=== PATIENT | female | born 1980 | race Caucasian/White ===

== ENCOUNTER → 2021-10-18 15:04 | Outpatient (BNVA) | payer BC, SELFPAY | PROVIDERS: PCP Nurse Practitioner Family; Visit Provider Nurse Practitioner Family | DX: M54.2 Cervicalgia (principal) ==

== ENCOUNTER → 2022-02-12 08:52 | Outpatient (BNVA) | payer BC, SELFPAY | PROVIDERS: PCP Nurse Practitioner Family; Visit Provider Nurse Practitioner Family | DX: G43.709 Chronic migraine without aura, not intractable, without status migrainosus (principal); M54.2 Cervicalgia; S06.0X0D Concussion without loss of consciousness, subsequent encounter | CPT/HCPCS: 99212 ==

== ENCOUNTER → 2022-03-31 15:32 | Outpatient (BNVA) | payer BC, SELFPAY | PROVIDERS: PCP Nurse Practitioner Family; Visit Provider Nurse Practitioner Family | DX: F07.81 Postconcussional syndrome (principal) | CPT/HCPCS: 99212 ==

== ENCOUNTER → 2022-05-23 14:33 | Outpatient (BNVA) | payer BC, SELFPAY | PROVIDERS: PCP Nurse Practitioner Family; Visit Provider Nurse Practitioner Family | DX: F07.81 Postconcussional syndrome (principal) ==

== ENCOUNTER → 2022-08-13 08:07 | Outpatient (BNVA) | payer BC, SELFPAY | PROVIDERS: PCP Nurse Practitioner Family; Visit Provider Nurse Practitioner Family | DX: Z13.89 Encounter for screening for other disorder (principal) ==

== ENCOUNTER → 2022-09-02 08:07 | Outpatient (BNVA) | payer OTHER, SELFPAY | PROVIDERS: PCP Nurse Practitioner Family; Visit Provider Psychiatry & Neurology Neurology | DX: G24.3 Spasmodic torticollis (principal) | CPT/HCPCS: 64616; J0585 ==

== ENCOUNTER 2023-02-26 08:12 | Outpatient (AMB) | payer BC, SELFPAY ==
--- NOTE | 2023-02-26 08:14 | MHC.OFFVIS ---
Intake Vital Signs 02/26/23 08:15 Height 5 ft 1 in Weight 129 lb 8 oz BMI 24.5 BP 98/72 Blood Pressure Location Lt brachial Position Sitting Pulse 92 Pulse Source Pulse Oximeter Pulse Oximetry (%) 98 Oxygen Delivery Method Room Air Intake Visit Reasons: follow up - LVM Intake Note: Patient presents for follow up. Patient states My migraines are the same my concussion is better but not where I would like it to be. Allergies Erythromycin Allergy (Mild, Uncoded 02/26/23 08:19) Unknown Medication List - Last Reconciled 02/26/23 by ALISHA Davison bupropion HCl 300 mg PO DAILY dihydroergotamine (Trudhesa) 1 spray into each nostril, may repeat x's 1 in 1 hour intranasally PRN; max 2 doses per day or 3 doses per week (do not take with Ritalin or Triptan within 24 hrs of use) 30 days fremanezumab-vfrm (Ajovy) 225 mg (1.5 mL) subcut ONCE 30 days lorazepam 0.5 mg PO BID PRN magnesium oxide 400 mg PO BEDTIME 30 days metoclopramide HCl (Reglan) 5 mg PO Q4H PRN 30 days onabotulinumtoxinA (Botox) 100 units IM ONCE 12 weeks riboflavin (vitamin B2) 400 mg PO DAILY 30 days rizatriptan 5 - 10 mg (0.5 - 1 x 10 mg) PO Q2H PRN 21 days tacrolimus 0.1% topical BID PRN trazodone 50 - 100 mg PO BEDTIME ubrogepant (Ubrelvy) 50 - 100 mg PO at onset of migraine, may repeat in 2 hours PRN; 30 days HPI HPI Comments History of Present Illness Details 43-yr-old female presents for f/u visit. Pt denies any significant interval medical changes. Pt reports the Ajovy is helping the migraine attacks. 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 Since her cognitive difficulties, are more challenging. This makes it difficult to concentrate, multitask. She is struggling with her short-term and working memory- for instance, cannot follow a recipe after returning home form work. During her work day, she has her prep period in the am, but she feels she is generally better in the am then in the afternoon. May request to change her prep period to the afternoon for the 2nd semester. She found some help from, but did not fully tolerate the Methylphenidate IR. [facility] Medical History Arthritis Depression Melanoma Ulcerative colitis Surgical History Hx of adenoidectomy Hx of tonsillectomy Hx of shoulder surgery Hx of section History of partial hysterectomy Hx of neck surgery Family History Other Acute migraine Mental health problem Social History Household Members: Spouse and Children Alcohol intake: current Alcohol intake frequency: a few times a week Patient Tobacco Use Status: Never used Tobacco Review of Systems Const All systems reviewed & are unremarkable except as noted in HPI and below Physical Exam Vital Signs: Last Vital Signs Pulse 92 02/26/23 08:15 BP 98/72 02/26/23 08:15 Pulse Ox 98 02/26/23 08:15 Oxygen Delivery Method Room Air 02/26/23 08:15 BMI result Body Mass Index 24.5 Const General: cooperative and no acute distress Orientation/consciousness: patient oriented x3 HEENT Head: Yes normocephalic Resp Effort & Inspection: normal respiratory effort and able to speak in complete sentences Neuro General: patient oriented x3, gait normal and CN's II-XI intact bilaterally Cognition (Neuro): normal cognition Motor exam (neuro): 5/5 motor strength present throughout Psych Appearance: grossly normal Mental Status: mental status grossly normal Speech and movement: Normal speech and movement present Affect: normal affect Attitude: cooperative Thought process: Normal thought process present Thought content: Normal thought content present Insight: Good insight present (Psych) Judgement: Good judgement present (Psych) Assessment & Plan Assessment & Plan (1) Postconcussional syndrome: Comment: Head Injury August 12 2021 w/ AYALA, dizziness, cognitive difficulties Code(s): F07.81 - Postconcussional syndrome (2) Chronic migraine without aura: Code(s): G43.709 - Chronic migraine without aura, not intractable, without status migrainosus Plan For migraine prevention tx: Continue Magnesium 400 mg, vitamin B2, Avoy- as pt is having good clinical effect. For acute migraine tx: Ubrelvy or rizatriptan at the onset of migraine. Previous tx trials: Ritalin- worsened headaches. Verapamil ER 100mg qhs- ineffective and caused increased dizziness. Methocarbamol 500mg tid prn for cervicalgia- ineffective. Trudhesa- effective- was denied by insurance. Trial Concerta 18mg qam- in hopes this helps after cognitive s/s. Neuro-psych eval to evaluate cognitive difficulties- on wait list. Future considerations- [place] difficulties[place] [facility] [place] F/u in 3 months or sooner prn. Medications: New methylphenidate HCl ER (Concerta) Partial Fill upon patient request. 18 mg PO QAM 30 days 30 tabs 0RF Changed From fremanezumab-vfrm (Ajovy) administer 225mg sc q month 225 mg (1.5 mL) subcut ONCE 30 days 1.5 mL 6RF To fremanezumab-vfrm (Ajovy) administer 675mg sc q 3 months 225 mg (1.5 mL) subcut ONCE 90 days 135 mL 3RF Discontinued erenumab-aooe (Aimovig Autoinjector) Discontinued Reason: Doctor's Order 140 mg subcut ONCE 30 days 30 mL 6RF Coding Level of Care Code Est Pt Level 4 (83824) Diagnoses Postconcussional syndrome F07.81 Chronic migraine without aura G43.709
[2023-02-26 08:15] VITALS: BP 98/72; PULSE 92; O2SAT 98; BMI 24.5
== END 2023-02-26 09:01 | disposition home or self-care (01) ==
PROVIDERS: PCP Nurse Practitioner Family; Visit Provider Nurse Practitioner Family
DX: R41.89 Other symptoms and signs involving cognitive functions and awareness (principal); F07.81 Postconcussional syndrome; G44.309 Post-traumatic headache, unspecified, not intractable
CPT/HCPCS: 99214

== ENCOUNTER → 2023-02-26 08:12 | Outpatient (BNVA) | payer BC, SELFPAY | PROVIDERS: PCP Nurse Practitioner Family; Visit Provider Nurse Practitioner Family ==

== ENCOUNTER → 2023-06-12 15:21 | Outpatient (BNVA) | payer BC, SELFPAY | PROVIDERS: PCP Physician Assistant; Visit Provider Nurse Practitioner Family ==

== ENCOUNTER 2024-03-22 08:21 | Outpatient (AMB) | payer BC, SELFPAY ==
[2024-03-22 08:25] VITALS: BP 98/68; BMI 21.7
--- NOTE | 2024-03-22 08:25 | A.OFFVIS_ITS ---
Vital Signs 03/22/24 08:25 Height 5 ft 1 in Weight 115 lb BMI 21.7 BP 98/68 Blood Pressure Location Rt brachial Position Sitting Intake Visit Reasons: 6 mnts f/u for concussion Intake Note: Patient presents for 6 month follow up. patient's headaches are way better. Allergies Erythromycin Allergy (Mild, Uncoded 03/22/24 08:28) Unknown Medication List - Last Reconciled 03/22/24 by ALISHA Davison bupropion HCl SR 300 mg PO DAILY dihydroergotamine (Trudhesa) 1 spray into each nostril, may repeat x's 1 in 1 hour intranasally PRN; max 2 doses per day or 3 doses per week (do not take with Ritalin or Triptan within 24 hrs of use) 30 days fremanezumab-vfrm (Ajovy) 225 mg (1.5 mL) subcut ONCE 90 days lorazepam 0.5 mg PO BID PRN magnesium oxide 400 mg PO BEDTIME 30 days methylphenidate HCl ER (Concerta) 18 mg PO QAM 30 days metoclopramide HCl (Reglan) 5 mg PO Q4H PRN 30 days onabotulinumtoxinA (Botox) 100 units IM ONCE 12 weeks riboflavin (vitamin B2) 400 mg PO DAILY 30 days rizatriptan 5 - 10 mg (0.5 - 1 x 10 mg) PO Q2H PRN 21 days tacrolimus 0.1% topical BID PRN trazodone 50 - 100 mg PO BEDTIME ubrogepant (Ubrelvy) 50 - 100 mg PO at onset of migraine, may repeat in 2 hours PRN; 30 days HPI Comments Details: 43-yr-old female presents for f/u visit. Pt endorses the following interval medical history changes. She has been actively trying to live healthier. She is taking small dose of weight loss medication. She is exercising regularly- an hour a day. Feels her cognition has returned to her baseline. She denies any cognitive difficulties while at work. 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 States migraine is very well-controlled. She continues on Ajovy 675mg, and feels this is more effective than doing it monthly. Needing to use her acute migraine tx once every 3 months, but more in the sp ring/early summer. Ubrelvy is very effective. Nurtec is also effective- but currently has Ubrelvy. PFSH Medical History Depression Ulcerative colitis Melanoma Arthritis Surgical History Hx of left breast biopsy History of cholecystectomy Hx of adenoidectomy Hx of tonsillectomy Hx of shoulder surgery Hx of section History of partial hysterectomy Hx of neck surgery Family History Other Acute migraine Mental health problem Social History Household Members: Spouse and Children Alcohol intake: current Alcohol intake frequency: a few times a week Patient Tobacco Use Status: Never used Tobacco Physical Exam Vital Signs: Last Vital Signs BP 98/68 03/22/24 08:25 BMI result Body Mass Index 21.7 Const General: cooperative and no acute distress Orientation/consciousness: patient oriented x3 Resp Effort & Inspection: normal respiratory effort and able to speak in complete sen tences Neuro General: patient oriented x3 Cranial nerves: Yes CN's II-XII intact bilaterally Cognition (Neuro): normal cognition Psych Appearance: grossly normal Mental Status: mental status grossly normal Speech and movement: Normal speech and movement present Affect: normal affect Attitude: cooperative Assessment & Plan Assessment & Plan (1) Chronic migraine without aura: Code(s): G43.709 - Chronic migraine without aura, not intractable, without status migra inosus Category: Medical (2) Postconcussional syndrome: Comment: Head Injury August 12 2021 w/ AYALA, dizziness, cognitive difficulties. Resolved. Code(s): F07.81 - Postconcussional syndrome Category: Medical Plan For migraine prevention tx: Continue Magnesium 400 mg, vitamin B2, Avoy 675mg q 90 days- as pt is having good clinical effect. ? For acute migraine tx: Ubrelvy or rizatriptan at the onset of migraine. ? Previous tx trials: Ritalin- worsened headaches. Verapamil ER 100mg qhs- ineffective and caused increased dizziness. Methocarbamol 500mg tid prn for cervicalgia- ineffective. Trudhesa- effective- was denied by insurance. Hookit trail was effective. ? Post-concussive syndrome- Pt reports s/s have resolved and she has returned to her baseline. Has had Neuro-psych eval. 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 Will request psychiatry consult. ? F/u in 6 months or sooner prn. Orders: Referrals Psychiatry Outpatient Consultation Service F32.A - Depression, unspecified Medications: Refilled ubrogepant (Ubrelvy) (0.5 - 1 x 100 mg) 50 - 100 mg PO at onset of migraine, may repeat in 2 hours PRN; 30 days 16 tabs 6RF migraine headache fremanezumab-vfrm (Ajovy) administer 675mg sc q 3 months 225 mg (1.5 mL) subcut ONCE 90 days 4.5 mL 3RF Coding Level of Care Code Est Pt Level 4 (53118) Diagnoses Chronic migraine without aura G43.709 Postconcussional syndrome F07.81
== END 2024-03-22 09:17 | disposition home or self-care (01) ==
LOC: HO.HSMS 08:22
PROVIDERS: PCP Physician Assistant; Visit Provider Nurse Practitioner Family
DX: G43.709 Chronic migraine without aura, not intractable, without status migrainosus (principal); F07.81 Postconcussional syndrome
CPT/HCPCS: 99214

== ENCOUNTER → 2024-03-22 08:21 | Outpatient (BNVA) | payer BC, SELFPAY | PROVIDERS: PCP Physician Assistant; Visit Provider Nurse Practitioner Family ==

== ENCOUNTER → 2024-10-13 15:29 | Outpatient (AMB) | payer BC, SELFPAY ==
[2024-10-13 15:31] VITALS: BP 90/80; PULSE 93; O2SAT 98; BMI 21.3
--- NOTE | 2024-10-13 15:31 | MHC.OFFVIS ---
Vital Signs 10/13/24 15:31 Height 5 ft 1 in Weight 113 lb BMI 21.3 BP 90/80 Blood Pressure Location Rt brachial Position Sitting Pulse 93 Pulse Source Pulse Oximeter Pulse Oximetry (%) 98 Oxygen Delivery Method Room Air Intake Visit Reasons: Follow Up 6mo Intake Note: Patient presents 6 month follow up for migraines. Activities Specialist Required: No Accompanied by: Self / Same As Patient Allergies Erythromycin Allergy (Mild, Uncoded 10/13/24 15:32) Unknown Medication List - Last Reconciled 10/13/24 by ALISHA Davison bupropion HCl SR 200 mg PO DAILY fremanezumab-vfrm (Ajovy) 225 mg (1.5 mL) subcut ONCE 90 days magnesium oxide 400 mg PO BEDTIME 30 days ubrogepant (Ubrelvy) 50 - 100 mg PO at onset of migraine, may repeat in 2 hours PRN; 30 days HPI Comments Details: 44-yr-old female presents for f/u visit of migraine. Pt reports she has been having irregular and very heavy menstrual cycles, thus underwent Mirena IUD insertion proximally 3 weeks ago. Then started a low dose estrogen patch couple of days ago, however she removed it yesterday as she was having mood changes, crying, decreased energy, repeated nocturnal awakenings, hot flashes. She states she did sleep better last night, though did wake up but could easily fall back sleep last night. She also states that she is considering trying Allyi- to help with chronic low libido. She is also having episodes of some of fingers and less so feet turning whitish and takes quite some time to returned to baseline, especially in the cold. She has noticed this while skiing, but also when swimming in the ocean. She states that she believes she had TSH checked in the fall. She has an upcoming follow-up with her [facility], and plans to ask them about doing follow-up lab work. States her mother has Raynaud's, and her daughter is thought to have Raynaud's. She continues to actively trying to live healthier. She is taking small dose of weight loss medication. She is exercising regularly- an hour a day. Feels her cognition has returned to her baseline. She denies any cognitive difficulties while at work. 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 States migraine is very well-controlled. She continues on Ajovy 675mg, and feels this is more effective than doing it monthly. Needing to use her acute migraine tx once every 3 months, but has not needed to use it 4-5 times in the last 1-2 months, which is typical for her in the spring/early summer. Ubrelvy is very effective. Nurtec is also effective- but currently has Ubrelvy. [facility] Medical History (Updated 03/22/24 @ 09:18 by ALISHA Davison) Depression Ulcerative colitis Melanoma Arthritis Surgical History Hx of left breast biopsy History of cholecystectomy Hx of adenoidectomy Hx of tonsillectomy Hx of shoulder surgery Hx of section History of partial hysterectomy Hx of neck surgery Family History Other Acute migraine Mental health problem Social History Household Members: Spouse and Children Alcohol intake: current Alcohol intake frequency: a few times a week Patient Tobacco Use Status: Never used Tobacco Physical Exam Vital Signs: Last Vital Signs Pulse 93 10/13/24 15:31 BP 90/80 10/13/24 15:31 Pulse Ox 98 10/13/24 15:31 Oxygen Delivery Method Room Air 10/13/24 15:31 BMI result Body Mass Index 21.3 Const General: cooperative and no acute distress Orientation/consciousness: patient oriented x3 Resp Effort & Inspection: normal respiratory effort and able to speak in complete sentences Neuro General: patient oriented x3 Cranial nerves: Yes CN's II-XII intact bilaterally Cognition (Neuro): normal cognition Psych Appearance: grossly normal Mental Status: mental status grossly normal Speech and movement: Normal speech and movement present Affect: normal affect Attitude: cooperative Assessment & Plan Assessment & Plan (1) Chronic migraine without aura: Code(s): G43.709 - Chronic migraine without aura, not intractable, without status migrainosus Category: Medical (2) Postconcussional syndrome: Comment: Head Injury August 12 2021 w/ AYALA, dizziness, cognitive difficulties. Resolved. Code(s): F07.81 - Postconcussional syndrome Category: Medical Plan Regarding patient's questions regarding hormonal treatment options: Discussed that migraine with aura in women is associated with a slight increased risk of stroke, and thus if possible I would avoid using supplemental estrogen therapy. Concur with continuing Mirena IUD. She may trial Allyi in hopes this improves libido, however if she does, she would need to reduce her Ubrelvy dose to 50 mg tab, max of 100 mg per day. For hand and feet coldness, suggestive of Raynaud's: Discussed ordering labs to evaluate for secondary underlying etiologies, including CBC, CMP, DONALD/RF, iron studies, nutritional studies. For migraine prevention tx: Continue Magnesium 400 mg, vitamin B2, Avoy 675mg q 90 days- as pt is having good clinical effect. Previous migraine prevention trials: Verapamil ER 100mg qhs- ineffective and caused increased dizziness. Botox not fully effective. Aimovig- effective but exacerbated constipation. For acute migraine tx: Ubrelvy or rizatriptan at the onset of migraine. Previous acute migraine treatment trials: Methocarbamol 500mg tid prn for cervicalgia- ineffective. Trudhesa- effective- was denied by insurance. Nurtec trail was effective. Rizatriptan-lost effectiveness. ? Post-concussive syndrome- Pt reports s/s have resolved and she has returned to her baseline. Has had Neuro-psych eval. 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 Will request psychiatry consult. Previous tx trials: Ritalin- worsened headaches. ? F/u in 6 months or sooner prn. Coding Level of Care Code Est Pt Level 4 (44657) Diagnoses Chronic migraine without aura G43.709 Postconcussional syndrome F07.81
--- OUTSIDE RECORDS SUMMARY | 2024-10-13 15:32 | XMS_ITS | Data Portability ---
Author Organization [employer] [facility] in Office Address [address] [place] [address] Assessment Encounter Date Assessment Date Assessment LastModified by Organization Details LastModified Time 08/25/2024 08/25/2024 I spent 35 minutes of hvbf-[id number]-ppcd counselling and care coordination time with the patient. This includes reviewing medical records (medical, surgical, family and social history); updating medication and allergy information in the electronic health record; and ordering labs, medications, and education materials to continue patient care. [email or web address] Not available 08/25/2024 16:59:06 10/04/2024 10/04/2024 spent 35 minutes of qxwn-kg-xglr counselling and care coordination time with the patient. This includes reviewing medical records (medical, surgical, family and social history); updating medication and allergy information in the electronic health record; and ordering labs, medications, and education materials to continue patient care. [email or web address] Not available 10/04/2024 14:44:58 Plan of Treatment Reminders Order Date Submit Date Provider Last Modified By Organization Details Last Modified Time Details Appointments V3APPT:PP 2024 02:30P Rosa RAHMAN NP Not available Not available Not available V3APPT:PP 2024 05:15A Rosa OLMEDO NP Not available Not available Not available Lab None recorded. Referral None recorded. Procedures None recorded. Surgeries None recorded. Imaging None recorded. Medication Orders estradiol 0.025 mg/24 hr semiweekl y transderm al patch 2024 025 [id number], [address] [place], [address], 10/04/2024 15:15:47 Patient TargetsNo targets recorded. Patient Instructions Encounter Date Encounter Id Patient Instructions Last Modified By Organization Details Last Modified Time 08/25/2024 [id number] Any requested follow-up visits are listed below in the Plan of Care section. Go directly to the [employer] virtual classroom manager at [email or web address] to book a time. [email or web address] Not available 08/25/2024 07:23:10 It was a pleasur e to meet with you today! We discussed your health concerns related to libido, skin, and hair changes, as well as irregular periods and heavy bleeding. Your Care Plan Together, we decided that you would: - Consider starting Addyi, a medication taken every night to increase dopamine levels and sex hormones, which may help with libido. Be aware that Addyi cannot be mixed with alcohol and may cause drowsiness and nausea. It usually takes about 4 weeks to take effect, and if no improvement is seen by 2 months, we can consider other options. - Upload your recent hormone levels, including testosterone, to the patient portal for review. Your testosterone levels were on the lower end of the normal range, and you may benefit from testosterone therapy if Addyi is not effective. - Consider the Mirena IUD, which can help with irregular periods and heavy bleeding. The Mirena contains progesterone, which can prevent uterine cancer and may allow you to use an estrogen patch without needing additional oral progesterone. - If you prefer not to use the Mirena, you can use an estrogen patch with oral progesterone. The patch may cause lightheadedness, nausea, headaches, breast tenderness, and breakthrough bleeding when first started, but these symptoms usually fade. There is no direct correlation with weight gain. - You could discuss with you local CAD DEVELOPER about surgical options such as endometrial ablation and or a partial hysterectomy - If you prefer not to use hormones, there are other medications for libido, such as Vyleesi, an injection given 30-40 minutes before intercourse. However, Vyleesi requires planning and cannot be used more than 8 times a month. - Follow up with me in 4 weeks to discuss your progress and any side effects you may experience. I will send you an email with all the information we discussed today, and you can reach me through the patient portal if you have any questions or concerns. Please carefully review the care plan we have decided upon, specific information regarding your medication, and important details about your treatment detailed below. Thank you for trusting us with your care! Flibanserin (Addyi)- This is a novel non-hormonal, multifunctional serotonin agonist antagonist (MSAA) that acts in the WAITER/WAITRESS to increase dopamine and norepinephrine (both responsible for sexual excitement) while decreasing serotonin (responsible for sexual satiety/inhibition) . It was approved by the FDA in 2015 to treat hypoactive sexual desire disorder in premenopausal women. Studies have shown that it modestly increases sexual functioning. Your risk of severe low blood pressure and fainting (loss of consciousness) is increased if you take ADDYI and: ? ? drink alcohol close in time to when you take your ADDYI dose. o Wait at least 2 hours after drinking 1 or 2 standard alcoholic drinks before taking ADDYI at bedtime. If you drink 3 or more standard alcoholic drinks in the evening, skip your ADDYI dose at bedtime. After you have taken your ADDYI at bedtime, do not drink alcohol until the following day. Do not take or start taking any prescription medicines, irmo-wgy-mpgsbqe medicines, or herbal supplements while taking ADDYI until you have talked with your provider. Do not take ADDYI if you: ? ? take certain medicines. Taking ADDYI with certain other medicines can increase the amount of ADDYI in your blood and cause severe low blood pressure, fainting (loss of consciousness), and sleepiness. Do not take ADDYI if you are taking any of the following medicines: o Certain medicines used to treat HIV-1 infection o Certain medicines that you take by mouth used to treat fungal infections o Certain antibiotics o Certain medicines used to treat Hepatitis C infection o Certain medicines used to treat high blood pressure, chest pain (angina), or other heart problems Take 100mg every night. Common side effects: Dizziness Difficulty falling asleep or staying asleep Nausea Dry mouth Tiredness May take 8 weeks to see benefits. Bremelanotide (Vyleesi): - FDA approved in 2019 to treat hypoactive sexual desire disorder in premenopausal women. It is a peptide agonist of the melanocortin receptors and acts centrally in the brain to reduce inhibition and increase excitation. The drug was found to improve desire and satisfaction compared to placebo. It comes as a push pen injectable device. Dosing: The woman Injects 1.75 mg subcutaneously via the autoinjector to the abdomen or thigh, as needed, at least 45 minutes before anticipated sexual activity. No more than one dose should be used within a 24 hour period and more than 8 doses per month is not recommended. Side effects: headaches, flushing and nausea. -Testosterone is not FDA approved for use in women, but is commonly used to treat low libido in women. Treatment with testosterone in women has been associated with a modest improvement in sexual desire and satisfaction. -???There is little terminal supervisor data on the safety of testosterone in women. Testosterone is not FDA approved for use in women. -???You will be started on a low dose and we will increase your dose in order to give you the best overall benefit, without increasing your overall risk of side effects. -Common side effects that have been reported include, but are not limited to acne, mood changes, excessive hair growth, and weight gain. The doses that are prescribed for women typically will not cause male hormone side effects. Rarely high doses could lead to hair loss, deepening of the voice or enlargement of the clitoris and these changes may not be reversible. -In order to monitor your response to the use of testosterone, we will check your level before starting therapy and we will also monitor your testosterone blood levels frequently. -???Please contact your [facility] clinician with any concerns. If you start to experience any alarming symptoms like chest pain or trouble breathing please go to the nearest emergency room for care. Today we reviewed options for treating common symptoms of menopause. These options include hormonal medications, non hormonal medications, integrative therapies and lifestyle modifications. Menopause symptoms vary from woman to woman. Some women get no symptoms, but others have many. Intensity and duration also vary and can last on average 5-10 years. HRT may help with many menopausal symptoms. It is FDA approved for the treatment of hot flashes, vaginal symptoms, osteoporosis, and for those in early or premature menopause. HRT is associated with relief of symptoms and improvement in bone health. When started close to the age of menopause, HRT reduces cardiovascular risk and has potential benefits for cognitive health. Here are the latest recommendations from the Menopause Society: https://menopause.o rg/patient-educatio n/menopause-topics/ hormone-therapy Hormone therapy most often involves the combination of estrogen and progestogen. As with any drug there are some potential risks associated with hormone therapy. There are concerns of associated health risks with HRT including risks related to breast cancer, uterine cancer, gallbladder disease, and dementia. Many of these concerns are related to older types of hormones that are no longer recommended today and some of these concerns differ depending on the component of hormones (i.e., estrogen vs progestogen) and the mode of delivery. Some studies have suggested that some types of HRT may increase the risk of heart attack, stroke, and blood clots. If you develop chest pain, difficulty breathing, or symptoms suggestive of a stroke please seek care immediately. Today we reviewed your personal history including specific risks and benefits of hormone therapy for you. Based on this shared decision making, we recommend HRT to you as a reasonable and helpful therapy. If you have additional questions related to health risks associated with HRT, please discuss with your clinician. Please know that HRT requires fine-tuning and an individualized approach. We? ll plan to adjust your therapy if needed to address your symptoms. We will meet in 4-6 weeks to check in about your new regimen. Please reach out if you need to meet sooner. Estradiol transdermal patch (Vivelle Dot): -Helpful for hot flashes, night sweats, and symptoms of perimenopause/menop ause. -Twice weekly transdermal patch. -Get it from your pharmacy. Application notes: -Peel off the backing from the patch and apply to a clean, dry area of your body, usually lower abdomen or upper buttock. Press the patch firmly in place for 10 seconds. Do not apply the patch on your breast or on oily, broken, or irritated skin. Replace your patch twice a week, and be as consistent as possible with the days you choose to change it. If the patch is not sticking or it causes irritation, try dusting your skin with a small amount of cornstarch before applying. Side effects: -While the HRT is safe for most users, some may experience side effects, including: nausea, breast tenderness, bloating, spotting, and mild mood changes. Estrogen in some forms increases the risk of a blood clot in the leg (deep vein thrombosis) or lung (pulmonary embolism). While blood clots are rare, contact your health care provider or go to the emergency room if you develop shortness of breath, coughing or chest pain, leg or calf pain, or redness or swelling. Oral micronized progesterone (Prometrium)? Continuous: -We prescribe progesterone to protect women with a uterus while taking estrogen. It may be prescribed for some individuals to help with sleep. -Remember to take this medication orally daily before bed, because it may make you drowsy. That is normal and common, and could bring the added benefit of better sleep. -Get it from your pharmacy. -Contraindications to this formulation: Peanut allergies as in peanut oil. -Concerning symptoms that would require immediate visit with PCP or urgent care: Severe mood changes. -Non-concerning side effects that are likely to resolve: cramping, bloating and mild moodiness. These are likely to ease within three months. [email or web address] Not available 08/25/2024 17:14:59 10/04/2024 [id number] Any requested follow-up visits are listed below in the Plan of Care section. Go directly to the [employer] virtual classroom manager at [email or web address] to book a time. [email or web address] Not available 10/04/2024 14:43:09 It was a pleasur e to meet with you today! We discussed your health concerns related to the recent insertion of the Mirena IUD, cystic acne, heavy and painful periods, and low libido. Your Care Plan Together, we decided that you would: - Give the Mirena IUD 3-6 months to see if your menstrual cycles and cystic acne improve, as it can take this time for your body to adjust. - Start using the estrogen patch at the lowest dose of 0.025 mg. If you experience worsening migraines, remove the patch. - Continue using the estrogen cream (2 mg) twice a week as currently prescribed. - Monitor for potential side effects of the estrogen patch, including irregular spotting and breast tenderness, which usually resolve within 4 to 6 weeks. - Schedule a follow-up appointment with Cynthia Olmedo on November 15 at 8:15 AM to assess the effectiveness of the estrogen patch and discuss any further steps. - Consider trying the Bhanu Libido supplement, which contains baldemar, ashwagandha, and maximo, if you prefer a natural approach to improving libido. You can find this supplement at [employer]. - Hold off on starting any new supplements, such as the Cortisol Certified Emergency Vehicle Technician, until after the follow-up appointment to avoid adding too many variables at once. Please carefully review the care plan we have agreed upon above, which includes specific information about your treatment for heavy periods, cystic acne, and low libido, as well as other important details about your overall care. Thank you for trusting us with your care! Today we reviewed options for treating common symptoms of menopause. These options include hormonal medications, non hormonal medications, integrative therapies and lifestyle modifications. Menopause symptoms vary from woman to woman. Some women get no symptoms, but others have many. Intensity and duration also vary and can last on average 5-10 years. HRT may help with many menopausal symptoms. It is FDA approved for the treatment of hot flashes, vaginal symptoms, osteoporosis, and for those in early or premature menopause. HRT is associated with relief of symptoms and improvement in bone health. When started close to the age of menopause, HRT reduces cardiovascular risk and has potential benefits for cognitive health. Here are the latest recommendations from the Menopause Society: https://menopause.o rg/patient-educatio n/menopause-topics/ hormone-therapy Hormone therapy most often involves the combination of estrogen and progestogen. As with any drug there are some potential risks associated with hormone therapy. There are concerns of associated health risks with HRT including risks related to breast cancer, uterine cancer, gallbladder disease, and dementia. Many of these concerns are related to older types of hormones that are no longer recommended today and some of these concerns differ depending on the component of hormones (i.e., estrogen vs progestogen) and the mode of delivery. Some studies have suggested that some types of HRT may increase the risk of heart attack, stroke, and blood clots. If you develop chest pain, difficulty breathing, or symptoms suggestive of a stroke please seek care immediately. Today we reviewed your personal history including specific risks and benefits of hormone therapy for you. Based on this shared decision making, we recommend HRT to you as a reasonable and helpful therapy. If you have additional questions related to health risks associated with HRT, please discuss with your clinician. Please know that HRT requires fine-tuning and an individualized approach. We? ll plan to adjust your therapy if needed to address your symptoms. We will meet in 4-6 weeks to check in about your new regimen. Please reach out if you need to meet sooner. Estradiol transdermal patch (Vivelle Dot): -Helpful for hot flashes, night sweats, and symptoms of perimenopause/menop ause. -Twice weekly transdermal patch. -Get it from your pharmacy. Application notes: -Peel off the backing from the patch and apply to a clean, dry area of your body, usually lower abdomen or upper buttock. Press the patch firmly in place for 10 seconds. Do not apply the patch on your breast or on oily, broken, or irritated skin. Replace your patch twice a week, and be as consistent as possible with the days you choose to change it. If the patch is not sticking or it causes irritation, try dusting your skin with a small amount of cornstarch before applying. Side effects: -While the HRT is safe for most users, some may experience side effects, including: nausea, breast tenderness, bloating, spotting, and mild mood changes. Estrogen in some forms increases the risk of a blood clot in the leg (deep vein thrombosis) or lung (pulmonary embolism). While blood clots are rare, contact your health care provider or go to the emergency room if you develop shortness of breath, coughing or chest pain, leg or calf pain, or redness or swelling. [email or web address] Not available 10/04/2024 15:17:27 Reason for Referral None Reported. Results Created Date Observation Date Name Description Value Unit Range Abnormal Flag Note LastModifiedBy Organization Detail LastModifiedTime Result Notes None recorded. Problems Name Problem SNOMED Code Status Onset Date Resolution Date Notes Provider Name and Address Organization Details Recorded Time Dysmenorrhe a 982982341 Active 2024 Elidia Peters NP (Katie) [address] [facility] 15:12:20 Sexual desire disorder 64361316 [place] 2024 [place] [address] [facility] 07:23:28 Changes in skin texture 925758599 Active 2024 [place] [address] [address] [facility], [facility] 5 07:23:41 Loss of hair 978544173 Active 2024 [place] [address] [facility] 07:23:46 Abnormal uterine bleeding 3976589757382 0 Active 2024 [place]THIA [place] [address], [address], [facility] 16:58:31 Irregular periods 40842822 Active 2024 [place], [address], [facility] 16:59:15 Gestational diabetes mellitus in childbirth 9237780119334 9101 Active 2024 [place], [address], [facility] 16:59:15 Migraine without aura, not refractory 584505060 Active 2024 [place], [address], [facility] 5 16:59:15 Torsion of the ovary and fallopian tube 033070967 Active 2024 [place], [address], [facility] 16:59:15 Endometrios is (clinical) 902471109 Active 2024 [place], [address], [facility] 5 16:59:15 Uterine leiomyoma 88198890 Active 2024 [place], [address], [facility] 16:59:15 Reduced libido 8387703 Active 2024 [place], [address], [facility] 16:59:16 Abnormal perimenopau yvonne bleeding 810393708 Active 2024 [place], [place], [facility] 16:59:16 Problem Notes None recorded. Procedures Surgical History Date Name Laterality Status Provider Name and Address Organization Details Recorded Time 06/29/19 25 Date of Last Pap [place]ear [place] , [facility] 08/25/2024 16:14:56 12/06/19 24 Date of Last Mammogram completed XIMENA BUNDY [place], , [facility] 08/25/2024 16:14:56 08/06/19 20 Date of Last Colonoscopy completed XIMENA BUNDY [facility] , [facility] 08/25/2024 16:14:56 [facility] 08/25/2024 16:15:00 ligation of fallopian tube completed XIMENA BUNDY [facility] , [facility] 08/25/2024 16:35:52 Cholecystectomy completed XIMENA BUNDY [facility] , [facility] 08/25/2024 16:37:35 Imaging Results None recorded. Procedure Notes None recorded. Medical Equipment None Reported. Allergies Allergen ID Allergen Name Allergen Category Reaction Reaction Severity Criticality Documentation Date Start Date Code Code System Note Provider Name and Address Organization Details Recorded Time 20300727 erythromy armand medicatio n rash Not available low 08/25/20242019 4053 RxNorm Not Available luis - External Data Service - prod 15:49:02 259174 juniper tar food,medi cation Not available Not available Not available 08/25/2024 6086 RxNorm XIMENA BUNDY [place] , [facility] 16:14:43 703033 claudia extract food Not available Not available Not available 08/25/2024 52742 97 [place] [address] [place], [address], [facility] 16:14:43 Medications Name Sig Start Date Stop Date Status Note LastModified by Organization Details LastModified Time bupropion HCl SR 150 mg tablet,12 hr sustained-r elease active Not Available Not Available Not Available bupropion HCl SR 100 mg tablet,12 hr sustained-r elease TAKE TWO TABLETS BY MOUTH EVERY DAY IN THE MORNING active Not Available Not Available No t Available Cholestyram ine Light 4 gram powder for suspension in a packet DISSOLVE 1 PACKET DIRECTED BY PACKAGING AND THEN DRINK BY MOUTH TWO TIMES A DAY active Not Available Not Available No t Available estradiol 0.01% (0.1 mg/gram) vaginal cream INSERT 2GM VAGINALLY ONCE A DAY FOR 2 WEEKS, THEN DECREASE USE TO 2 TIMES WEEKLY active Not Available Not Available No t Available magnesium active Not Available Not Chantel ilable Not Available Xifaxan 550 mg tablet TAKE ONE TABLET BY MOUTH THREE TIMES A DAY active Not Available Not Available No t Available Ubrelvy 100 mg tablet active PRN Not Available Not Available No t Available Ajovy 225 mg/1.5 mL subcutaneou s auto-inject or active Not Available Not Available Not Available Lyllana 0.025 mg/24 hr transdermal patch APPLY 1 PATCH TO SKIN TWICE A WEEK active Not Available Not Available No t Available tirzepatide (weight loss) 2.5 mg/0.5 mL subcutaneou s pen injector active Not Available Not Available Not Available tirzepatide (weight loss) 2.5 mg/0.5 mL subcutaneou s solution 08/25 completed Not Available Not Available Not Available Vitals Date Recorded Body height Body mass index (BMI) Body weight Provider Name and Address Organization Details Last Updated DateTime 08/25/2024 154.94 cm 21 kg/m2 439[address].[place] [address] [place], [address], [facility] 08/25/2024 16:15:19 Social History None recorded. Functional Status Question Answer Note LastModified by Organization D etails LastModified Time What is your level of alcohol consumption? None Information not available 08/25/2024 Are you currently employed? 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 Family History Relationship Description Onset Age of this Age Resolved Age Notes LastModified by Organization Details LastModified Time Paternal Grandmother Osteoporosis [email or web address] Not available 08/25/2024 16:14:47 Maternal Grandmother Osteoporosis [email or web address] Not available 08/25/2024 16:14:47 Medical History Condition Response Migraines Y GI Problems Y Gestational Diabetes Y Endometriosis Y Depression/ depression Y Gynecological History Statement/Question Response Date of Last Mammogram 12/06/2023 Date of Last Colonoscopy 08/06/2019 Date of LMP 08/23/2024 Menses Monthly Y Date of Last Pap Smear 06/29/2024 Current Control Method Other Approximate Obstetrics History GPAL:G 0 P 0 0 0 1 Type Value Living 1 Past Encounters Encounter ID Performer Location Encounter Start Date Encounter Closed Date Diagnosis/Indication Diagnosis SNOMED-CT Code Diagnosis ICD10 Code Diagnosis Note [id number] CYNTHIA OLMEDO NP Main Office [address] [place] [address] 08/25/2024 15:48:07 08/26/2024 04:19:47 Irregular periods [id number] N92.6 - Cycles range from 22 to 26 days apart, sometimes with extremely heavy flow for 24-48 hours and significan t dysmenorrh ea.- Discussed multiple options to manage bleeding and regulate cycles, including insertion of a levonorges trel intrauteri ne device and continuous oral contracept jannie; also explored potential estrogen patch plus oral progestero ne therapy to stabilize hormonal fluctuatio ns.- Patient is hesitant regarding an IUD; no new treatments initiated at this time pending her decision.- Will provide a detailed summary via secure message for patient review. Uterine leiomyoma [id number] D25.9 - 2 mm fibroid noted; may contribute to heavier bleeding but is not currently symptomati c aside from possibly exacerbati ng menstrual flow. Migraine w ithout aura, not refractory [id number] G43.009 - Patient? s migraines are currently stable on Ajovy and Ubrelvy taken as needed.- Discussed potential risk of hormonal therapy affecting migraine frequency or severity; advised discontinu ation of new hormone regimen if headaches significan tly worsen. Reduced libido [id number] R 68.82 - Patient reports persistent ly low sexual desire, though capable of engaging in intercours e once initiated. - Explored non-hormon al pharmacolo gic options such as Addyi (oral medication taken nightly) to augment dopamine levels and support desire; cautioned regarding associated nausea and alcohol restrictio ns.- Provided informatio n on intermitte nt ? Scream Cream? and injectable on-demand therapy (bremelano tide), though patient prefers a daily regimen that does not require pre-planni ng.- Patient will review educationa l materials and consider starting Addyi; no prescripti ons provided yet.- Advised to upload recent testostero ne levels (already in hand) for review if subsequent trial of low-dose testostero ne cream or injection is desired. [id number] Elidia Peters NP (Katie) Main Office [address] [place] [address] 10/04/2024 14:10:37 10/07/2024 05:22:47 Reduced libido [id number] R68.82 Edu patient low libido and possible perimenopa use and what to expectDisc ussed management optionsWis hes estradiol patch since may help other symptoms as well.Will start with 0.025 twice weekly dosing due to hx of migraines, endometrio sis and fibroids.P cayla edward support in Mirena IUDEducate d on medication s use, risks, side effects and benefitsPt understand s and agrees with treatment planF/u 4-6 weeks or sooner with any questions or concerns The patient is experienci ng significan t symptoms related to hormonal changes that impact their quality of life and ability to function profession ally and/or personally . We reviewed lifestyle modificati ons, integrativ e therapies, hormonal options as well as other medication s used to treat common menopausal symptoms. Pt was informed that, as with any drug, there are some potential risks associated with HRT. We discussed that some types of HRT may increase the risk of heart attack, stroke, and blood clots. Patient is counseled on concerning signs and symptoms and instructed to immediatel y seek care if these develop. We discussed potential health risks that may be associated with HRT including risks related to breast cancer, uterine cancer, gallbladde r disease, dementia and others. Many of these concerns are related to older types of hormones that are no longer recommende d today and some of these concerns differ depending on the component of hormones (estrogen vs progestero ne) and the mode of delivery. After review of the potential benefits of HRT, the alternativ es and the risks of therapy this patient prefers a trial of HRT. Based on this shared decision making HRT therapy will be offered. Migraine w ithout aura, not refractory [id number] G43.009 - Patient? s migraines are currently stable on Ajovy and Ubrelvy taken as needed.- Discussed potential risk of hormonal therapy affecting migraine frequency or severity; advised discontinu ation of new hormone regimen if headaches significan tly worsen. Dysmenorrhea [id number] N 94.6 Mirena IUD placed 2 weeks agoWill continue to monitor cyclesDisc ussed 3-6 mo adjustment period Health Concerns Section Related Observation LastModified by Organization Detai ls LastModified Time None Recorded Concern Status LastModified by Organization Details LastModified Time None Recorded Advance Directives Directive None Recorded Payers Insurance Date Sequence Insurance Name Policy Number Policy Phan Covered Member ID Phan Member ID Guarantor Name 10/12/2024 1 JORGE (PPO) [id number] 2 Santiago Melgar [id number] MANUEL Melgar Notes Date Note Type Note Provider Name and Address Organization Details Recorded Time 08/26/19 25 text/htm l Virtual Visit AttestationModality: VideoProvider Location: Home Patient Location: Home Patient State: {{AL AK AZ AR CA CO CT DE DC FL GA HI ID IL IN IA KS [place] LA LUANNE* ME OR MN MS MO MT NE NV NH NJ NM NY NC ND OH OK OR PA RI SC SD TN TX UT VT VA W A W[place] WI W[place]}} The patient is a 44-year-old female with a history of migraines, gestational diabetes, endometriosis, and gastrointestinal issues presenting for concerns about low libido, skin and hair changes, and irregular menstrual cycles. Menstrual Irregularities- LMP: Last month- Currently menstruating; period started either yesterday or the day before.- Reports irregular menstrual cycles, with periods occurring every 22-26 days, previously every 28 days.- Describes periods as really, really heavy for 24-48 hours, stating they are completely unmanageable. - Recently diagnosed with a 2mm fibroid.- Experiencing a return of cramps, which she hadn't had in years.- Food Or Baggage Handling Rampman recommended an IUD, but patient is hesitant due to past negative experiences with hormonal treatments. Low Libido- Reports a significant decrease in libido, stating, I have no sex drive. It's just not there. - Feels frustrated and guilty about the lack of libido, despite feeling good about herself after losing weight and being active.- Tried various treatments, including Scream Cream, without success.- Recent hormone levels checked; testosterone levels were on the lower end of the normal range. Perimenopausal Symptoms- Reports experiencing hot flashes and night sweats until last January, which have since resolved.- Started wearing socks to bed and taking magnesium, which she believes helped with the hot flashes and improved her sleep.- Currently using estradiol cream 0.1 mg twice a week but reports not having the best of luck with it. Migraine History- Long-standing history of migraines, which are currently stable.- Taking Ajovy injections and Ubrelvy as needed for migraines.- Expresses concern about starting new hormonal treatments due to a history of migraines, stating, I'm really nervous about hormones and what they do to my body. - Reports that her migraines are manageable for the first time in her life. Past Medical History- Gestational diabetes during , which was unmanageable and led to a at 7 months.- History of endometriosis, which resolved after her first .- Gastrointestinal issues since 2019, including a perforated colon treated with two weeks of IV antibiotics and a cholecystectomy last year.- Low blood pressure, no history of heart disease or high cholesterol.- Major neck injury as a child from a horseback riding accident, which she believes exacerbated her migraines.- Family history of migraines, with her twin sister, mother, father, and paternal grandmother also affected. Past Surgical History- Right oophorectomy and salpingectomy due to ovarian torsion.- Tubal ligation during due to high-risk .- Cholecystectomy last year. Medications:- Ajovy injections- Bupropion- Tirzepatide 2.5 mg- Ubrelvy- Estradiol cream 0.1 mg, twice a week- Candibactin BR and AR supplements- Magnesium supplement Allergies:- Erythromycin- Juniper tar- Claudia PMHx:- Endometriosis- Migraines- Depression- Gestational Diabetes PSHx:- Tubal ligation- Right Oophorectomy- Right Salpingectomy- Section- Gallbladder Removal FMHx:- Migraines (Father)- Migraines (Mother)- Migraines (Twin Sister)- Migraines (Paternal Grandmother) Current Meds:- Ajovy injections- Bupropion- Trizepatide 2.5- Ubrevi- Candibactin BR- Candibactin AR- Estradiol cream 0.1 milligrams, 2 times a week Allergies:- Erythrolysin- Juniper tar- Claudia 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 marco femaleFollow up HRTPerimenopausalPrevious ? : low libido, heavy periods every 22-26 days (hx of fibroids and endometriosis), fatigue.Relief of hot flashes and night sweats with magnesium supplement.Discussed management options last visit but wanted to consider her options before starting any treatment.Today reports mirena placed 2 weeks ago to manage heavy painful periods.Cystic acne since insertion.Has not had a period since insertion.Not interested in Addyi as previously discussed due to hx of low BP.Considering estradiol patch. Sig PMH- migraines, well controlled at present, endometriosis. 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
== END ==
LOC: HO.HSMS 15:30
PROVIDERS: PCP Physician Assistant; Visit Provider Nurse Practitioner Family
DX: G43.709 Chronic migraine without aura, not intractable, without status migrainosus (principal); F07.81 Postconcussional syndrome
CPT/HCPCS: 99214

== ENCOUNTER 2025-05-02 15:33 | Outpatient (AMB) | payer BC, SELFPAY ==
[2025-05-02 15:36] VITALS: BP 90/64; PULSE 71; O2SAT 99; BMI 21.5
--- NOTE | 2025-05-02 15:36 | MHC.OFFVIS ---
Vital Signs 05/02/25 15:36 Height 5 ft 1 in Weight 114 lb BMI 21.5 BP 90/64 Blood Pressure Location Lt brachial Position Sitting Pulse 71 Pulse Source Pulse Oximeter Pulse Oximetry (%) 99 Oxygen Delivery Method Room Air Intake Visit Reasons: 6m follow up Intake Note: Patient presents 6 month follow up for migraines. Fiber Locking Supervisor Required: No Accompanied by: Self / Same As Patient Allergies Erythromycin Allergy (Mild, Uncoded 05/02/25 15:36) Unknown Medication List - Last Reconciled 05/02/25 by ALISHA Davison bupropion HCl SR 200 mg PO DAILY fremanezumab-vfrm (Ajovy) 225 mg (1.5 mL) subcut ONCE 90 days magnesium oxide 400 mg PO BEDTIME 30 days ubrogepant (Ubrelvy) 50 - 100 mg PO at onset of migraine, may repeat in 2 hours PRN; 30 days HPI Comments Details: 45-yr-old female presents for f/u visit of migraine. She states that she recently started on a prescription intravaginal progesterone and estradiol cream, Oestra, via [facility]. She is hoping this will help her perimenopausal symptoms, including mood changes, crying, decreased energy, repeated nocturnal awakenings, hot flashes, and difficulty gaining muscle mask despite regular exercise. She continues to be followed by an integrative functional Medicine Clinic. When she 1st started on this, she did notice an increase in her migraine frequency. However, she is now sleeping better. She had had of the 16 migraine attacks in the last couple of months. Whereas, prior she was having 1-2 attacks per month She continues to feel that Ajovy 675mg is effective, and feels this is more effective than doing it monthly. Ubrelvy continues to be very effective. For milder headache, she may use Excedrin with good effect PFSH Medical History (Updated 05/02/25 @ 18:51 by ALISHA Davison) Depression Ulcerative colitis Melanoma Arthritis Surgical History Hx of left breast biopsy History of cholecystectomy Hx of adenoidectomy Hx of tonsillectomy Hx of shoulder surgery Hx of section History of partial hysterectomy Hx of neck surgery Family History Other Acute migraine Mental health problem Social History Household Members: Spouse and Children Alcohol intake: current Alcohol intake frequency: a few times a week Patient Tobacco Use Status: Never used Tobacco Physical Exam Vital Signs: Last Vital Signs Pulse 71 05/02/25 15:36 BP 90/64 05/02/25 15:36 Pulse Ox 99 05/02/25 15:36 Oxygen Delivery Method Room Air 05/02/25 15:36 BMI result Body Mass Index 21.5 Const General: cooperative and no acute distress Orientation/consciousness: patient oriented x3 Resp Effort & Inspection: normal respiratory effort and able to speak in complete sentences Neuro General: patient oriented x3 Cranial nerves: Yes CN's II-XII intact bilaterally Cognition (Neuro): normal cognition Psych Appearance: grossly normal Mental Status: mental status grossly normal Speech and movement: Normal speech and movement present Affect: normal affect Attitude: cooperative Assessment & Plan Assessment & Plan (1) Chronic migraine without aura: Code(s): G43.709 - Chronic migraine without aura, not intractable, without status migrainosus Category: Medical Qualifiers: Status migrainosus presence: without status migrainosus Intractability: not intractable Qualified Code(s): G43.709 - Chronic migraine without aura, not intractable, without status migrainosus (2) Postconcussional syndrome: Comment: Head Injury August 12 2021 w/ AYALA, dizziness, cognitive difficulties. Resolved. Code(s): F07.81 - Postconcussional syndrome Category: Medical Plan Regarding patient's questions regarding hormonal treatment options: Discussed that migraine with/without aura in women is associated with a slight increased risk of stroke. However, as the dosing and serum availability of her current HRT is not clear, it is more difficult to speak to the specific risk related to this specific HRT. As, she would like to continue this to determine full efficacy, I have advised her to continue strategies to reduce overall stroke risk, such as continuing to avoid smoking and to continue optimizing her cardiovascular risk factors, through diet and exercise as her BP is currently low-normotensive. For hand and feet coldness, suggestive of Raynaud's: We did not discuss this today, we will address in future as needed For migraine prevention tx: Continue Magnesium 400 mg, vitamin B2, Avoy 675mg every 90 days- as pt is having good clinical effect. Previous migraine prevention trials: Verapamil ER 100mg qhs- ineffective and caused increased dizziness. Botox not fully effective. Aimovig- effective but exacerbated constipation. For acute migraine tx: Ubrelvy or rizatriptan at the onset of migraine. May use Excedrin 1-2 tabs as needed for milder headaches Previous acute migraine treatment trials: Methocarbamol 500mg tid prn for cervicalgia- ineffective. Trudhesa- effective- was denied by insurance. Nurtec trail was effective. Rizatriptan-lost effectiveness. ? Post-concussive syndrome- Pt reports s/s have resolved and she has returned to her baseline. Has had Neuro-psych eval. 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 Previous tx trials: Ritalin- worsened headaches. ? F/u in 6 months or sooner prn. Medications: Changed From ubrogepant (Ubrelvy) (0.5 - 1 x 100 mg) 50 - 100 mg PO at onset of migraine, may repeat in 2 hours PRN; 30 days 16 tabs 6RF migraine headache To ubrogepant (Ubrelvy) 50 - 100 mg PO at onset of migraine, may repeat in 2 hours PRN; 48 tabs 3RF migraine headache 90 days Refilled fremanezumab-vfrm (Ajovy) administer 675mg sc q 3 months 225 mg (1.5 mL) subcut ONCE 4.5 mL 4RF 90 days Coding Level of Care Code Est Pt Level 4 (81224) Diagnoses Chronic migraine without aura without status migrainosus, not intractable G43.709 Status migrainosus presence: without status migrainosus Intractability: not intractable Postconcussional syndrome F07.81
--- OUTSIDE RECORDS SUMMARY | 2025-05-02 22:17 | XMS_ITS | Encounter Summary ---
Author Organization [facility] Address [address] [place] [address] [place] [phone] Phone Care Team Providers Care Tinning Equipment Tender Name Role Phone [place]Concepcion stanley Clotilde GARCIA Primary Care Provider Pcp, Unknown Primary Care Provider Radha Galvez Primary Care Provider [phone] Encounter Details Date Type Department Care Team (Late st Contact Info) Description 04/07/2023 Procedure Pass [facility], Ct Scan - [address] [address] Social History Tobacco Use Types Packs/Day Years Used Date Smoking Tobacco: Never Smokeless Tobacco: Never Alcohol Use Standard Drinks/Week Comments Yes 0 (1 standard drink = 0.6 oz pur e alcohol) social Education Answer Date Recorded Are you interested in more education? Not on layne e 09/19/2022 Are you concerned about learning? Not on file 09/19/2022 No 09/19/2022 No 09/19/2022 Digital Access Answer Date Recorded No 10/17/2022 No 10/17/2022 Reliable internet access at home? Not on file 10/17/2022 Device with a working camera? Not on file Intimate Partner Violence Answer Date R ecorded Are you denied basic needs s uch as food, clothing, or medical care? No 04/07/2023 In the past 12 months have y ou been in a relationship with a person who hurts, threatens, or tries to control you? No 04/07/2023 Are you denied basic needs s uch as food, clothing, or medical care? No 04/07/2023 In the past 12 months have y ou been in a relationship with a person who hurts, threatens, or tries to control you? No 04/07/2023 Comments No Sex and Gender Information Value Date Recorded Sex Assigned at Female 06/13/2019 9:46 AM EST Legal Sex Female 9:20 PM EDT Gender Identity Female 06/13/2019 9:46 AM EST Sexual Orientation Straight 06/13/2019 9: 46 AM EST documented as of this encounter Functional Status * Calculated C-SSRS Risk Score (Lifetime/Recent) Answer Date of Assessment Author No Risk Indicated 04/07/2023 5:33 AM Avelina Rondon RN * [place] Suicide Severity Rating Scale (Screener/Recent Self-Report) Question Answer Date of Assessment Author 1. Wish to be (Past 1 Month) No 04/07/2023 5:33 AM Jose Perez RN 2. Non-Specific Active Suicidal Thoughts (Past 1 Month) No 04/07/2023 5:33 AM Jose Perez RN 6. Suicidal Behavior (Lifetime) No 04/07/2023 5:33 AM Jose Perez RN documented as of this encounter Plan of Treatment Not on file documented as of this encounter Visit Diagnoses Not on filedocumented in this encounter Care Teams Tinning Equipment Tender Relationship Specialty Start Date End Date Concepcion Joseph CNP [address] [place] [phone] [email or web address] PCP - General Nurse Practitioner 04/07/23 11/21/24 Pcp, Unknown PCP - General 11/22/24 12/15/24 Radha Burnham PA [address] [place] [phone] PCP - General Physician Last Pattern Grader 12/16/24 documented as of this encounter Additional Source Comments The information contained in this document represents components of the legal health record. It is not the complete legal health record.[facility]
--- OUTSIDE RECORDS SUMMARY | 2025-05-02 22:17 | XMS_ITS | Encounter Summary ---
Author Organization [facility] Address [address] [place] [address] Phone Care Team Providers Care Information Systems Audit Manager Name Role Phone Rosaline Lorenzana MD Primary Care Provider [phone] Slim Reynolds MD Primary Care Provider Marian Meza NP Primary Care Provider Concepcion Joseph ANTIQUER Primary Care Provider Pcp, Unknown Primary Care Provider Radha Galvez Primary Care Provider [phone] Encounter Details Date Type Department Care Team (Latest Contact Info) Description 12/30/2017 Ancillary Orders [facility], X-Ray - [address] [id number] Chula Gregory NP [address] [place] [phone] [email or web address] Spondylosis of cervical region without myelopathy or radiculopathy Social History Tobacco Use Types Packs/Day Years Used Date Smoking Tobacco: Never Assessed Comments Unknown Sex and Gender Information Value Date Recorded Sex Assigned at Female 06/13/2019 9:46 AM EST Legal Sex Female 9:20 PM EDT Gender Identity Female 06/13/2019 9:46 AM EST Sexual Orientation Straight 06/13/2019 9: 46 AM EST documented as of this encounter Plan of Treatment Not on file documented as of this encounter Results * XR CERVICAL SPINE 4-5 VIEWS (12/30/2017 4:30 PM EDT) Anatomical Region Laterality Modality C-spine Radiographic Margi ging 12/30/2017 6:30 PM EDT Impressions 12/30/2017 6:32 PM EDT Degenerative disc disease and bilateral neural foraminal encroachment at the C5- 6 and C6-7 levels with mild right C4-5 foraminal impingement present as well. No acute bony abnormality apparent. POS [id number] Narrative 12/30/2017 6:32 PM EDT COMPARISON: 04/28/2008 MR FINDINGS: Frontal, lateral, oblique, and AP open mouth views were obtained revealing no vertebral body fracture or subluxation. There are prominent degenerative disc changes at C5-6 and C6-7 levels with uncovertebral spurring causing bilateral neural foraminal encroachment, most pronounced on the right at C6-7. Additional mild right C4-5 foraminal impingement is present. Prevertebral soft tissues are within normal limits. There is chronic reversal of lower cervical lordosis. Procedure Note Rosaline Urban MD - 12/30/2017 COMPARISON: 04/28/2008 MR FINDINGS: Frontal, lateral, oblique, and AP open mouth views were obtainedrevealing no vertebral body fracture or subluxation. There are prominentdegenerative disc changes at C5-6 and C6-7 levels with uncovertebralspurring causing bilateral neural foraminal encroachment, most pronouncedon the right at C6-7. Additional mild right C4-5 foraminal impingement ispresent. Prevertebral soft tissues are within normal limits. There ischronic reversal of lower cervical lordosis. IMPRESSION: Degenerative disc disease and bilateral neural foraminal encroachment atthe C5-6 and C6-7 levels with mild right C4-5 foraminal impingementpresent as well. No acute bony abnormality apparent. 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 documented in this encounter Care Teams Information Systems Audit Manager Relationship Specialty Start Date End Date Rosaline Lorenzana MD [address] [place] [address] [email or web address] PCP - General 05/28/17 07/09/19 Slim Reynolds MD [address] [facility] [address] [place] [phone] [email or web address] PCP - General Family Medicine 07/10/19 08/11/21 Marian Meza NP [address] [place] [phone] [email or web address] PCP - General Family Medicine 08/12/21 04/06/23 Concepcion Joseph CNP [address] [place] [phone] [email or web address] PCP - General Nurse Practitioner 04/07/23 11/21/24 Pcp, Unknown PCP - General 11/22/24 12/15/24 Radha Burnham PA [address] [place] [id number] PCP - General Physician Intelligence Officer 12/16/24 documented as of this encounter Additional Source Comments The information contained in this document represents components of the legal health record. It is not the complete legal health record.[facility]
--- OUTSIDE RECORDS SUMMARY | 2025-05-02 22:18 | XMS_ITS | Encounter Summary ---
Author Organization [facility] Address [address] [place] [address] Phone Care Team Providers Care Casing Running Machine Tender Name Role Phone Marian Meza NP Primary Care Provider Concepcion Joseph GERICARE AIDE Primary Care Provider Pcp, Unknown Primary Care Provider Radha Galvez Primary Care Provider [phone] Encounter Details Date Type Department Care Team (Late st Contact Info) Description 08/12/2021 Procedure Pass [facility], Ct Scan - [address] [address] Social History Tobacco Use Types Packs/Day Years Used Date Smoking Tobacco: Never Smokeless Tobacco: Never Alcohol Use Standard Drinks/Week Comments Yes 0 (1 standard drink = 0.6 oz pur e alcohol) social Comments No Sex and Gender Information Value Date Recorded Sex Assigned at Female 06/13/2019 9:46 AM EST Legal Sex Female 9:20 PM EDT Gender Identity Female 06/13/2019 9:46 AM EST Sexual Orientation Straight 06/13/2019 9: 46 AM EST documented as of this encounter Functional Status * Calculated C-SSRS Risk Score (Lifetime/Recent) Answer Date of Assessment Author No Risk Indicated 08/12/2021 6:14 PM EDT Silva Mckeon RN * [place] Suicide Severity Rating Scale (Screener/Recent Self-Report) Question Answer Date of Assessment Author 1. Wish to be (Past 1 Month) No 08/12/2021 6:14 PM EDT Antoinette Kay RN 2. Non-Specific Active Suicidal Thoughts (Past 1 Month) No 08/12/2021 6:14 PM EDT Antoinette Kay RN 6. Suicidal Behavior (Lifetime) No 08/12/2021 6:14 PM EDT Antoinette Kay RN documented as of this encounter Plan of Treatment Not on file documented as of this encounter Visit Diagnoses Not on filedocumented in this encounter Care Teams Casing Running Machine Tender Relationship Specialty Start Date End Date Marian Meza NP [address] [place] [address] [email or web address] PCP - General Family Medicine 08/12/21 04/06/23 Concepcion Joseph CNP [address] [place] [address] [email or web address] PCP - General Nurse Practitioner 04/07/23 11/21/24 Pcp, Unknown PCP - General 11/22/24 12/15/24 Radha Burnham PA [address] [place] [address] PCP - General Physician Survey Operations Director 12/16/24 documented as of this encounter Additional Source Comments The information contained in this document represents components of the legal health record. It is not the complete legal health record.[facility]
--- OUTSIDE RECORDS SUMMARY | 2025-05-02 22:18 | XMS_ITS | Encounter Summary ---
Author Organization [facility] Address [address] [place] [address] Phone Care Team Providers Care Neuro Intensivist Physician Name Role Phone Marian Meza NP Primary Care Provider Concepcion Joseph CNP Primary Care Provider Pcp, Unknown Primary Care Provider Radha Galvez Primary Care Provider [phone] Reason for Referral * MRI/CAT Scan - Closed Specialty Diagnoses / Procedures Referred By Venecia torres Referred To Contact Radiology Diagnoses Concussion without loss of consciousness, initial encounter Procedures MRI Brain CHG MRI BRAIN Vijaya Palomino NP [address] [address] Phone: tel: fax: Referral ID Status Reason Start Date Expiration Date Visits Re quested Visits Authorized [id number] Closed 10/23/2021 11/22/2021 1 1 Encounter Details Date Type Department Care Team (Latest Contact Info) Description 10/22/2021 Transcribe Orders [facility] Department [address] [place] [address] Vijaya Palomino NP [address] [address] Concussion without loss of consciousness, initial encounter (Primary Dx) Social History Tobacco Use Types Packs/Day Years [...] documented as of this encounter Results * MRI BRAIN WITHOUT CONTRAST (10/31/2021 4:32 PM EDT) Anatomical Region Laterality Modality Head Magnetic Resonan ce 10/31/2021 8:35 PM EDT Impressions 10/31/2021 8:49 PM EDT No acute infarct, mass lesion or hemorrhage. Narrative 10/31/2021 8:49 PM EDT MRI BRAIN WITHOUT CONTRAST TECHNIQUE: Multi-sequence, multi-planar MRI of the brain was performed without intravenous contrast. COMPARISON: Head CT on August 12, 2021. Brain MRI on January 03, 2009 FINDINGS: Brain Parenchyma: No evidence of acute infarct, mass lesion, or hemorrhage. Single small T2 FLAIR hyperintense lesion in the white matter of the right frontal lobe (5:15) was probably present in 2008, and is of doubtful clinical significance. Ventricular System and Extra-Axial Spaces: Normal. No evidence of midline shift or hydrocephalus. Extracranial Structures: Arterial flow voids in the skull base are present. Procedure Note Sanchez Chicas MD - 10/31/2021 MRI BRAIN WITHOUT CONTRAST TECHNIQUE: Multi-sequence, multi-planar MRI of the brain was performed withoutintravenous contrast. COMPARISON: Head CT on August 12, 2021. Brain MRI on January 03, 2009 FINDINGS: Brain Parenchyma: No evidence of acute infarct, mass lesion, orhemorrhage. Single small T2 FLAIR hyperintense lesion in the white matterof the right frontal lobe (5:15) was probably present in 2008, and is ofdoubtful clinical significance. Ventricular System and Extra-Axial Spaces: Normal. No evidence of midlineshift or hydrocephalus. Extracranial Structures: Arterial flow voids in the skull base arepresent. IMPRESSION: No acute infarct, mass lesion or hemorrhage. Vijaya Palomino TRUCK DRIVER HELPER IMG MR HEAD/NECK Fin al Result documented in this encounter Visit Diagnoses Diagnosis Concussion without loss of consciousness, initial encounter- Primary Concussion without loss of consciousness, initial encounter documented in this encounter Care Teams Neuro Intensivist Physician Relationship Specialty Start Date End Date Marian Meza TRUCK DRIVER HELPER [address] [place] [address] [email or web address] PCP - General Family Medicine 08/12/21 04/06/23 Concepcion Joseph CNP [address] [place] [address] [email or web address] PCP - General Nurse Practitioner 04/07/23 11/21/24 Pcp, Unknown PCP - General 11/22/24 12/15/24 Radha Burnham PA [address] [place] [address] PCP - General Physician Electrical Instrument Repairer 12/16/24 documented as of this encounter Additional Source Comments The information contained in this document represents components of the legal health record. It is not the complete legal health record.[facility]
--- OUTSIDE RECORDS SUMMARY | 2025-05-02 22:18 | XMS_ITS | Encounter Summary ---
Author Organization [facility] Address [address] [place] [address] Phone Care Team Providers Care Sales Representative Health Insurance Name Role Phone Mraian Meza NP Primary Care Provider Concepcion Joseph MARKET EDITOR Primary Care Provider Pcp, Unknown Primary Care Provider Radha Galvez Primary Care Provider [phone] Encounter Details Date Type Department Care Team (Late st Contact Info) Description 08/12/2021 Procedure Pass [facility], Ct Scan - [address] [address] Social History Tobacco Use Types Packs/Day Years [...] 6:14 PM EDT Silva Mckeon RN * [place] Suicide Severity Rating Scale (Screener/Recent Self-Report) Question [...] on filedocumented in this encounter Care Teams Sales Representative Health Insurance Relationship Specialty Start Date End Date Marian Meza NP [address] [place] [address] [email or web address] PCP - General Family Medicine 08/12/21 04/06/23 Concepcion Joseph CNP [address] [place] [address] [email or web address] PCP - General Nurse Practitioner 04/07/23 11/21/24 Pcp, Unknown PCP - General 11/22/24 12/15/24 Radha Burnham PA [address] [place] [address] PCP - General Physician Multi Media Specialist 12/16/24 documented as of this encounter Additional Source Comments The information contained in this document represents components of the legal health record. It is not the complete legal health record.[facility]
--- OUTSIDE RECORDS SUMMARY | 2025-05-02 22:18 | XMS_ITS | Clinical Summary ---
Author Organization [facility] Address [address] [place] [address] Phone Care Team Providers Care Tyre Retreader Name Role Phone Radha Burnham Primary Care Provider [phone] Allergies Active Allergy Reactions Criticality Noted Date Comments Erythromycin Rash Low 06/13/2019 Macrolide Antibiotics Other (See Comments) 10/2002 Rash Claudia Unknown 09/22/2024 claudia extract Medications buPROPion (WELLBUTRIN) 100 MG immediate release tablet Take 100 mg by mouth 2 (two) times a day. Active fremanezumab-vf rm (AJOVY SYRINGE SUBQ) Inject under the skin every 3 (three) months. Active estradioL (ESTRACE) 0.01 % (0.1 mg/gram) vaginal cream Place 2 g vaginally daily. For 2 weeks and then 2 times weekly 42.5 g 3 5 06/29/19 26 Active Active Problems Problem Noted Date Diagnosed Date Fibroid 06/29/2024 Prediabetes 06/10/2024 Diverticulitis 07/10/2019 Uncoded hx of depression 06/22/2002 Overview (07/15/2014): hx of depression; suicide attempt, , hospitalized for 3 weeks at [place]. Pt denies depression/anxiety now, no need for psych connection per pt Endometriosis 06/22/2002 Overview (07/15/2014): endometriosis Migraine 06/22/2002 Overview (07/15/2014): migraines Uncoded c-spine repair post fall 06/22/2002 Overview (07/15/2014): c-spine repair post fall; fell off horse as child Encounters Date Type Department Care Team Description 03/24/2025 Telephone [facility] [address] [place] [address] Henri Lentz MD Appointment from Last 3 Months Family History Medical History Relation Comments Endometriosis Sister Relation Status Comments Sister Social History Tobacco Use Types Packs/Day Years [...] Orientation Straight 06/13/2019 9: 46 AM EST Last Filed Vital Signs Vital Sign Reading Time Taken Comments Blood Pressure 106/68 11/22/2024 11:45 AM EDT Pulse 90 04/15/2023 3:17 PM EST Temperature 36.8 C (98.3 F) 04/15/2023 3:17 PM EST Respiratory Rate 18 04/07/2023 11:58 AM EST Oxygen Saturation 97% 04/15/2023 3:17 PM EST Inhaled Oxygen Concentration - - Weight 51.3 kg (113 lb) 11/22/2024 11:45 AM EDT Height 154.9 cm (5' 1 ) 11/22/2024 11:45 AM EDT Body Mass Index 21.35 11/22/2024 11:45 AM EDT Plan of Treatment Health Maintenance Due Date Last Done Comments DEPRESSION SCREENING 1993 HEPATITIS C SCREENING 1999 HIV ONE-TIME SCREENING (18-65 YEARS) 1999 INFLUENZA VACCINE (#1) 2024 2, 02/20/2011, 02/22/2010, Additional history exists COVID-19 VACCINE (2024- season) 2025 06/10/2021, 08/08/2020 MAMMOGRAM 12/07/2025 12/08/2023, 12/2023, 05/20/2023, Additional history exists PAP SMEAR 06/29/2027 06/29/2024, 05/25, 12/23/2021, Additional history exists Adult Td,Tdap Booster 09/11/2031 09/10/2021, 010 SMOKING STATUS SCREENING (Once After 26 Yrs) Completed 06/10/2024 HEPATITIS A VACCINES Aged Out No long er eligible based on patient's age to complete this topic HIB VACCINES Aged Out No longer eligi ble based on patient's age to complete this topic MENINGOCOCCAL VACCINES (ACWY) Aged Out No longer eligible based on patient's age to complete this topic MENINGOCOCCAL VACCINES (B) Aged Out N o longer eligible based on patient's age to complete this topic PNEUMOCOCCAL VACCINES (0-49 years) Aged Out No longer eligible based on patient's age to complete this topic Medical Devices Implanted Type Area Bedspread Inspector Device Identifier Shelf Expiration Date Model / Serial / Lot Iud Implanted:05/2024 (Quantity not on file) Intrauterine Device Procedures Procedure Name Priority Date/Time Associated Diagnosis Comments PAP TEST Routine 06/29/2024 12:00 AM EST BI MAMMOGRAM OUTSIDE (NO INTERPRETATION) Routine 12/08/2023 12:00 AM EDT from Last 3 Months or Most Recently Relevant to Health Maintenance Results * Pap Test (06/29/2024 12:00 AM EST) Report [address] [id number] Planing Machine Operator: Nirmal Mendiola MD SOCIAL MEDIA ASSISTANT Cytology Report FINAL DIAGNOSIS A. PAP SMEAR (THIN PREP) CE: SPECIMEN ADEQUACY: Satisfactory for evaluation; transformation zone present. INTERPRETATION: NEGATIVE FOR INTRAEPITHELIAL LESION OR MALIGNANCY. This specimen was analyzed by the automated ThinPrep Imaging System ([employer].) and the selected hooper were reviewed by a thermometer production worker. Electronically Signed Out By: VERONICA Espinoza(ASCP) The Pap test is a screening test primarily for squamous cancers and precursors and has associated false-negative and false-positive results. New technologies such as liquid-based preparations may decrease but will not eliminate all false-negative results. Regular sampling and follow-up of unexplained clinical signs and symptoms are recommended to minimize false negative results. PROCEDURES/ADDENDA HPV Testing (Requested) Ordered Date: 06/30/2024 A. PAP SMEAR (THIN PREP) CE: High-risk HPV Panel w/ extended genotyping NEG HPV 16-NEG HPV 18-NEG HPV 45-NEG HPV 33/58-NEG HPV 31-NEG HPV 56/59/66-NEG HPV 51-NEG HPV 52-NEG HPV 35/39/68-NEG Performed by real-time polymerase chain reaction (PCR) at [facility], [address] [place] [address], [place], [place] using the FDA-approved BD Onclarity9 HPV Assay with extended genotyping. Uses of the assay in scenarios other than those approved by the FDA should be considered off-label use. The accuracy and precision of this test for all other off-label specimen sources has been verified in the Cytopathology Laboratory of the [facility] and has not been cleared or approved by the U.S. Food and Drug Administration. Clinical correlation is advised. The assay assesses the E6/E7 DNA target and utilizes human beta globin as an internal control. Cytology and HPV testing are screening assays and should not be used as the sole means of detecting cancer. False-positives and false-negatives can occur. CLINICAL HISTORY Date of Last Menstrual Period: 06-10-2024 Other Clinical Conditions: Screening Pap Previous Unsatisfactory SPECIMEN SOURCE A: PAP SMEAR (THIN PREP) CE Patient Name: CUCO MELGAR : 1980 (Age: 44) Sex: F Institution: [facility] Location: [facility] Date of Collection: 06/29/2024 Date of Reported: 07/06/2024 11:24 Results to: Henri Lentz MD [facility] Final Diagnosis A. PAP SMEAR (THIN PREP) CE: SPECIMEN ADEQUACY: Satisfactory for evaluation; transformation zone present. INTERPRETATION: NEGATIVE FOR INTRAEPITHELIAL LESION OR MALIGNANCY. This specimen was analyzed by the automated ThinPrep Imaging System ([employer].) and the selected hooper were reviewed by a thermometer production worker. [facility] Results\Inter pretation A. PAP SMEAR (THIN PREP) CE: High-risk HPV Panel w/ extended genotyping NEG HPV 16-NEG HPV 18-NEG HPV 45-NEG HPV 33/58-NEG HPV 31-NEG HPV 56/59/66-NEG HPV 51-NEG HPV 52-NEG HPV 35/39/68-NEG Performed by real-time polymerase chain reaction (PCR) at [facility], [address] [place] [address] using the FDA-approved BD Onclarity HPV Assay with extended genotyping. Uses of the assay in scenarios other than those approved by the FDA should be considered off-label use. The accuracy and precision of this test for all other off-label specimen sources has been verified in the Cytopathology Laboratory of the [facility] and has not been cleared or approved by the U.S. Food and Drug Administration. Clinical correlation is advised. The assay assesses the E6/E7 DNA target and utilizes human beta globin as an internal control. Cytology and HPV testing are screening assays and should not be used as the sole means of detecting cancer. False-positives and false-negatives can occur. [facility] Conversion Type (Conversion Source) 06/29/2024 06/30/2024 9:39 AM EST us Henri Lentz MD CYTOLOGY ORDERABLES Edit ed Result - Final [facility] [address] [place] [address] * Mammogram Outside (No Interpretation) (12/08/2023 12:00 AM EDT) Narrative Stephanie Merlos - 11/18/2024 2:18 PM EDT This study is for PACS storage only and not for interpretation. Procedure Note Stephanie Merlos - 11/18/2024 This study is for PACS storage only and not for interpretation. us Unknown Unknown IMG OUTSIDE IMAGING W/OUT INT ERPRETATION Final Result from Last 3 Months or Most Recently Relevant to Health Maintenance Insurance PPO OUT OF STATE PPO BLUE [place] OUT OF [facility] PPO BLUE [place] OUT OF STATE PPO BLUE [place] OUT OF STATE PPO L[employer] Power [place] OUT [facility] PPO [facility] PPO [place] Advance Directives For more information, please contact: [phone] (9AM - 5PM [place], Thursday-Thursday) * Full Code (Presumed) (Latest Code Status on File) Date Activated Date Inactivated Comments 07/10/2019 5:37 PM 07/14/2019 3:13 PM Care Teams Tyre Retreader Relationship Specialty Start Date End Date Radha Burnham PA [address] [place] [phone] PCP - General Physician Linux Programmer 12/16/24 Additional Source Comments The information contained in this document represents components of the legal health record. It is not the complete legal health record.[facility]
--- OUTSIDE RECORDS SUMMARY | 2025-05-02 22:18 | XMS_ITS | Encounter Summary ---
Author Organization [facility] Address [address] [place] [address] Phone Care Team Providers Care Posting Specialist Name Role Phone Marian Meza GASOLINE ENGINE INSPECTOR Primary Care Provider Concepcion Joseph CNP Primary Care Provider Pcp, Unknown Primary Care Provider Radha Galvez Primary Care Provider Encounter Details Date Type Department Care Team (Late st Contact Info) Description 10/22/2021 Procedure Pass [address] [place] [address] Social History Tobacco Use Types Packs/Day Years [...] on filedocumented in this encounter Care Teams Posting Specialist Relationship Specialty Start Date End Date Marian Meza NP [address] [place] [address] [email or web address] PCP - General Family Medicine 08/12/21 04/06/23 Concepcion Joseph CNP [address] [place] [address] [email or web address] PCP - General Nurse Practitioner 04/07/23 11/21/24 Pcp, Unknown PCP - General 11/22/24 12/15/24 Radha Burnham PA [address] [place] [address] PCP - General Physician Senior Applications Developer 12/16/24 documented as of this encounter Additional Source Comments The information contained in this document represents components of the legal health record. It is not the complete legal health record.[facility]
== END 2025-05-02 16:53 | disposition home or self-care (01) ==
LOC: HO.HSMS 15:33
PROVIDERS: Visit Provider Nurse Practitioner Family
DX: G43.709 Chronic migraine without aura, not intractable, without status migrainosus (principal); F07.81 Postconcussional syndrome
CPT/HCPCS: 99214